=== PATIENT | female | born 1960 | race Caucasian/White ===

== ENCOUNTER 2018-08-08 17:00 | Outpatient (CLI) | payer OTHER ==
--- NOTE | 2018-08-08 17:46 | RAD ---
EXAM: Left knee 3 views: HISTORY: Acute left knee pain following hyperextension injury 3 days ago COMPARISON: None FINDINGS: Degenerative changes. No acute fracture or dislocation or other significant acute osseous abnormality. IMPRESSION: No significant acute process.
== END 2018-08-08 17:01 | disposition home or self-care (01) ==
LOC: SCSRAD 17:00
PROVIDERS: ATTEND Neurological Surgery
DX: M25.562 Pain in left knee (principal)

== ENCOUNTER 2019-07-18 07:57 | Outpatient (CLI) | payer OTHER ==
--- NOTE | 2019-07-18 10:34 | CT ---
SOFT TISSUE NECK CT WITH AND WITHOUT CONTRAST: HISTORY: Unspecified dysphasia. Partial thyroidectomy. COMPARISON: None. FINDINGS: The visualized brain parenchyma is unremarkable. Bilateral ocular lenses are appropriately located. B oth globes are intact. Retrobulbar fat is preserved. Symmetric attenuation of the optic nerves and ocular rectus muscles. Adequate aeration of the visualized paranasal sinuses and mastoid air cells. Aerodigestive tract is patent. No mucosal abnormality. Limited evaluation of the oral cavity due to d ental amalgam artifact. Midline fatty raphae of the tongue is preserved. Epiglottis has a normal caliber. Preepiglottic fat is preserved. The supraglottic, glottic and subglottic larynx are unremarkable. Symmetric attenuation of the submandibular glands. Symmetric fatty attenuation of both parotid glands . The paraspinal muscles have symmetric attenuation. Grossly the great vessels of the neck are patent. Technique limits evaluation. Straightening of normal cervical lordosis. Cervical spine vertebral body height is maintained. No fra cture. No evidence of high-grade central canal stenosis or high-grade neural foraminal narrowing. No acute abnormality in the upper mediastinum. Patchy groundglass opacities in the visualized lung pa renchyma. In the thyroid bed, in the isthmus is not appreciated. Evaluation of two separate rounded foci in the right paratracheal region and inferior to the left thyroid lobe is limited due to attenuation artifact from the patient's shoulders. On the noncontrast images, both lesions may be isodense to sof t tissues and slightly hypodense when compared to the adjacent thyroid parenchyma. There focus in the right paratracheal region which does demonstrate enhancement, measuring 0.8 x 0.6 cm. There is a 0.8 x 0.7 cm focus with mild enhancement in the left paratracheal region, just inferior to the left thyroid lobe. The visualized distal cervical and upper thoracic esophagus is grossly unremarkable. IMPRESSION: CT findings suggesting a partial thyroid resection. Isodense focus with evidence of enhancement in th e right paratracheal region and inferior to the left thyroid lobe. Differential considerations include parathyroid adenoma, residual thyroid tissue or rounded lymph nodes. Clinical correlation is essential. Correlate for possible hyperparathyroidism. Rounded lymph nodes would imply a malignant process. CODE T Transcribed Date/Time: 07/18/2019 10:49 AM
== END 2019-07-18 07:58 | disposition home or self-care (01) ==
LOC: SCSCT 07:57
PROVIDERS: ATTEND Internal Medicine Cardiovascular Disease
DX: R13.10 Dysphagia, unspecified (principal)
CPT/HCPCS: 70492; 82565

== ENCOUNTER 2021-03-17 10:23 | Outpatient (CLI) | payer OTHER | END 2021-03-17 10:24 | disposition home or self-care (01) | LOC: SCSLAB 10:23 | PROVIDERS: ATTEND Family Medicine | DX: Z01.818 Encounter for other preprocedural examination (principal) | CPT/HCPCS: 71046 ==

== ENCOUNTER 2023-03-03 08:42 | Outpatient (CLI) | payer OTHER | END 2023-03-03 08:43 | disposition home or self-care (01) | LOC: RAD 08:42 | PROVIDERS: ATTEND Surgery | DX: E66.01 Morbid (severe) obesity due to excess calories (principal); R93.3 Abnormal findings on diagnostic imaging of other parts of digestive tract | CPT/HCPCS: 74220 ==

== ENCOUNTER 2023-03-03 10:30 | Outpatient (CLI) | payer OTHER | END 2023-03-03 10:31 | disposition home or self-care (01) | LOC: DTY/OP 10:30 | PROVIDERS: ATTEND Surgery | DX: E66.01 Morbid (severe) obesity due to excess calories (principal) | CPT/HCPCS: 97802 ==

== ENCOUNTER 2023-03-04 13:16 | Outpatient (CLI) | payer OTHER | END 2023-03-04 13:17 | disposition home or self-care (01) | LOC: DTY/OP 13:16 | PROVIDERS: ATTEND Surgery | DX: E66.01 Morbid (severe) obesity due to excess calories (principal); Z68.41 Body mass index [BMI] 40.0-44.9, adult | CPT/HCPCS: 97802 ==

== ENCOUNTER 2023-03-05 08:58 | Outpatient (CLI) | payer OTHER | END 2023-03-05 08:59 | disposition home or self-care (01) | LOC: DTY/OP 08:58 | PROVIDERS: ATTEND Surgery | DX: E66.01 Morbid (severe) obesity due to excess calories (principal) | CPT/HCPCS: 97802 ==

== ENCOUNTER 2023-03-08 11:38 | Outpatient (CLI) | payer OTHER | END 2023-03-08 11:39 | disposition home or self-care (01) | LOC: DTY/OP 11:38 | PROVIDERS: ATTEND Surgery | DX: E66.01 Morbid (severe) obesity due to excess calories (principal) | CPT/HCPCS: 97802 ==

== ENCOUNTER 2023-03-12 15:45 | Outpatient (CLI) | payer OTHER | END 2023-03-12 15:46 | disposition home or self-care (01) | LOC: DTY/OP 15:45 | PROVIDERS: ATTEND Surgery | DX: E66.01 Morbid (severe) obesity due to excess calories (principal); Z68.39 Body mass index [BMI] 39.0-39.9, adult | CPT/HCPCS: 97802 ==

== ENCOUNTER 2023-03-15 11:08 | Outpatient (CLI) | payer OTHER | END 2023-03-15 11:09 | disposition home or self-care (01) | LOC: DTY/OP 11:08 | PROVIDERS: ATTEND Surgery | DX: E66.01 Morbid (severe) obesity due to excess calories (principal) | CPT/HCPCS: 97802 ==

== ENCOUNTER 2023-03-16 08:55 | Outpatient (CLI) | payer OTHER | END 2023-03-16 08:56 | disposition home or self-care (01) | LOC: DTY/OP 08:55 | PROVIDERS: ATTEND Surgery | DX: E66.01 Morbid (severe) obesity due to excess calories (principal) | CPT/HCPCS: 97802 ==

== ENCOUNTER 2023-03-17 10:53 | Outpatient (CLI) | payer OTHER | END 2023-03-17 10:54 | disposition home or self-care (01) | LOC: DTY/OP 10:53 | PROVIDERS: ATTEND Surgery | DX: E66.01 Morbid (severe) obesity due to excess calories (principal) | CPT/HCPCS: 97802 ==

== ENCOUNTER 2023-03-22 15:33 | Outpatient (CLI) | payer OTHER | END 2023-03-22 15:34 | disposition home or self-care (01) | LOC: DTY/OP 15:33 | PROVIDERS: ATTEND Surgery | DX: E66.01 Morbid (severe) obesity due to excess calories (principal) | CPT/HCPCS: 97802 ==

== ENCOUNTER 2023-07-04 11:04 | Emergency (ER) | payer MEDICARE, OTHER ==
[2023-07-04] MEDS ORDERED: Proparacaine 0.5% Opth 15 ML BOT ONE (11:43)
[2023-07-04] MEDS ORDERED: Fluorescein Opthalmic Strip ONE (11:43)
[2023-07-04 12:05] LABS: Influenza A by NAA Not Detected (NotDetected); Influenza B by NAA Not Detected (NotDetected); SARS-CoV-2 NAA Rapid Test Not Detected (NotDetected)
== END 2023-07-04 13:02 | disposition home or self-care (01) ==
LOC: ERS 11:04
DX: B02.9 Zoster without complications (principal); I10 Essential (primary) hypertension; E78.5 Hyperlipidemia, unspecified; E03.9 Hypothyroidism, unspecified; E06.3 Autoimmune thyroiditis
CPT/HCPCS: 99283